=== PATIENT | male | born 1970 | race Caucasian/White ===

== ENCOUNTER 2020-02-01 00:45 | Emergency (ER) | payer OTHER ==
[~2020-02-01] VITALS: Ht 182.9 cm; Wt 95.3 kg
[~2020-02-01 00:45] MED LIST: EQL GLUCOSAMIN1 EAC3; FISHOIL; LEVOTHYROXINE0.05 MG; NORCO 5-325 TA1 EACH PO
[2020-02-01] MEDS ORDERED: METFORMIN HCL500 M1 PO (00:51)
[2020-02-01] MEDS ORDERED: LEVOTHYROXINE150 MCG PO (00:51)
[2020-02-01 02:17] LABS: URINE BILIRUBIN NEGATIVE (Negative); URINE BLOOD NEGATIVE (Negative); URINE CLARITY CLEAR; URINE COLOR YELLOW; URINE GLUCOSE-RANDOM* NEGATIVE (Negative); URINE KETONES NEGATIVE (Negative); URINE LEUKOCYTES-REFLEX NEGATIVE (Negative); URINE NITRITE-REFLEX NEGATIVE (Negative); URINE PROTEIN (DIPSTICK) NEGATIVE (Negative); URINE SPECIFIC GRAVITY 1.025 (1.005-1.035); URINE UROBILINOGEN 0.2 E.U./dl (0.2-1.0)
[2020-02-01] MEDS ORDERED: NORCO 5-325 TA1 EAC1 PO (02:59)
[2020-02-01] MEDS ORDERED: BENTYL 20 MG TA20 M1 PO (02:59)
[2020-02-01 03:05] VITALS: BP 135/90
== END 2020-02-01 05:01 | disposition home or self-care (01) ==
LOC: ER 00:45
PROVIDERS: Emergency Medicine
DX: R10.11 Right upper quadrant pain (principal); R11.0 Nausea; R05 Cough; E11.9 Type 2 diabetes mellitus without complications; E03.9 Hypothyroidism, unspecified; Z79.899 Other long term (current) drug therapy; Z87.891 Personal history of nicotine dependence